=== PATIENT | male | born 1985 | race Caucasian/White ===

== ENCOUNTER 2024-01-02 08:57 | Emergency (ER) | payer OTHER, BC, SELFPAY ==
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
[2024-01-02 09:11] VITALS: BP 161/89; PULSE 84; RESP 16; TEMP 36.7; O2SAT 100
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
[2024-01-02 11:20] VITALS: BP 138/80; PULSE 78; RESP 16; TEMP 36.8; O2SAT 100
== END 2024-01-02 11:24 | disposition home or self-care (01) ==
PROVIDERS: Emergency Provider Physician Assistant
DX: R07.81 Pleurodynia (principal); V49.40XA Driver injured in collision with unspecified motor vehicles in traffic accident, initial encounter
CPT/HCPCS: 71046; 71100; 99283